=== PATIENT | male | born 1960 | race Caucasian/White ===

== ENCOUNTER 2017-10-25 15:16 | Outpatient (CLI) | payer BC | END 2017-10-25 15:17 | disposition home or self-care (01) | LOC: BICULT 15:16 | PROVIDERS: ATTEND Otolaryngology Plastic Surgery within the Head & Neck | DX: E04.1 Nontoxic single thyroid nodule (principal); E04.2 Nontoxic multinodular goiter; Z90.89 Acquired absence of other organs | CPT/HCPCS: 76536 ==

== ENCOUNTER 2019-05-01 15:04 | Outpatient (CLI) | payer BC ==
--- NOTE | 2019-05-01 15:52 | ULT ---
Thyroid ultrasound: 05/01/2019 COMPARISON: 10/25/2017 HISTORY: Evaluate left thyroid nodules. History of right thyroidectomy TECHNIQUE: Multiplanar grayscale sonographic imaging of the thyroid gland obtained. FINDINGS: The right lobe of the thyroid gland is surgically absent. The thyroid isthmus measures 2 mm in AP dimension. The left lobe of the thyroid gland measures 3.1 x 6.5 x 2.6 cm. The left lobe of the thyroid gland is heterogeneous and lobulated, containing numerous nodules. Nodules within the left lobe of the thyroid gland include a 1.3 x 1.1 x 1.0 cm complex cystic nodule in the lateral aspect of the upper p ortion of the left lobe, a complex solid and cystic nodule within the medial aspect of the upper portion of the left lobe measuring 1.0 x 0.8 x 0.5 cm, a solid round hypoechoic lesion within the mid portion of the left lobe measuring 2.1 x 2.0 x 1.6 cm, and a complex heterogeneous solid nodule within the medial inferior aspect of the left lobe measuring 1.3 x 1.3 x 1.2 cm. When compared to the prior examination the largest solid hypoechoic nodule within the left lobe appears to have grown, previously measuring approximately 1.2 x 1.6 x 1.6 cm. The medial inferior left nodule measuring up t o 1.3 cm is difficult to compare to the prior examination. It is uncertain whether or not this nodule was present on the prior examination secondary to differences in imaging technique. IMPRESSION: TI-BI-RADS Category 4-moderately suspicious. As the largest solid nodule appears to have grown and is larger than 1.5 cm, fine-needle aspiration advised. Transcribed Date/Time: 05/01/2019 3:58 PM
== END 2019-05-01 15:05 | disposition home or self-care (01) ==
LOC: BICULT 15:04
PROVIDERS: ATTEND Otolaryngology Plastic Surgery within the Head & Neck
DX: E04.1 Nontoxic single thyroid nodule (principal)
CPT/HCPCS: 76536

== ENCOUNTER 2020-07-19 12:13 | Outpatient (CLI) | payer BC ==
--- NOTE | 2020-07-19 13:48 | ULT ---
Thyroid ultrasound: 07/19/2020 COMPARISON: 05/01/2019 and 10/25/2017 HISTORY: Prior thyroid biopsy, reevaluate thyroid nodules TECHNIQUE: Multiplanar grayscale sonographic imaging of the thyroid gland obtained. FINDINGS: The thyroid isthmus measures 4 mm in AP dimension and demonstrates no evidence for nodule. The right lobe of the thyroid gland is surgically absent. The left lobe measures 6.3 x 3.0 x 2.6 cm. There are multiple small complex cystic nodules within the mid and superior aspect of the left lobe measuring up to approximately 1.2 cm, not significantly changed when compared to prior imaging. There is an ill-defined 1.1 x 0.8 x 1.2 cm nodule within the midportion of the left lobe which is het erogeneous and solid. This nodule is located laterally within the mid left lung zone and demonstrates ill-defined margins. Evaluation with compared to the prior examination is limited second sorin to technique. The mid and lower aspect of the left lobe of the thyroid gland appears replaced with multiple solid n odules, which includes a solid nodule which measures up to approximately 2.5 x 2.4 x 2.1 cm, not significantly changed. Additional smaller solid nodules are noted within the mid and lower aspect of the left lobe. No definite change when compared to the prior examination. IMPRESSION: Multiple solid and cystic thyroid nodules noted within the left lobe. When compared to th e 05/01/2019 examination there has been no significant interval change. Direct comparison is somewhat limited secondary to differences in technique but no definite new nodules are seen.
== END 2020-07-19 12:14 | disposition home or self-care (01) ==
LOC: BICULT 12:13
PROVIDERS: ATTEND Otolaryngology Plastic Surgery within the Head & Neck
DX: E04.2 Nontoxic multinodular goiter (principal)
CPT/HCPCS: 76536

== ENCOUNTER 2021-09-07 09:33 | Outpatient (CLI) | payer BC | END 2021-09-07 09:34 | disposition home or self-care (01) | LOC: BICULT 09:33 | PROVIDERS: ATTEND Otolaryngology Otolaryngic Allergy | DX: E04.1 Nontoxic single thyroid nodule (principal) | CPT/HCPCS: 76536 ==

== ENCOUNTER 2021-09-22 09:45 | Outpatient (CLI) | payer BC | END 2021-09-22 09:46 | disposition home or self-care (01) | LOC: BICRAD 09:45 | PROVIDERS: ATTEND Family Medicine | DX: J20.9 Acute bronchitis, unspecified (principal) | CPT/HCPCS: 71046 ==

== ENCOUNTER 2023-09-27 07:52 | Outpatient (CLI) | payer BC | END 2023-09-27 07:53 | disposition home or self-care (01) | LOC: BICULT 07:52 | PROVIDERS: ATTEND Otolaryngology Plastic Surgery within the Head & Neck | DX: E04.9 Nontoxic goiter, unspecified (principal) | CPT/HCPCS: 76536 ==

== ENCOUNTER 2025-08-18 11:15 | Outpatient (CLI) | payer BC | END 2025-08-18 11:16 | disposition home or self-care (01) | LOC: BICRAD 11:15 | PROVIDERS: ATTEND Internal Medicine Rheumatology | DX: M25.561 Pain in right knee (principal); M25.542 Pain in joints of left hand | CPT/HCPCS: 73565 ==